=== PATIENT | female | born 1965 | race American Indian/Alaskan Native ===

== ENCOUNTER 2017-07-18 01:12 | Emergency (ER) | payer BC ==
[2017-07-18 01:12] VITALS: BMI 54.1
--- NOTE | 2017-07-18 01:39 | C.PDOC ---
History Of Present Illness Patient presents to ED c/o left sided chest pressure radiating to her left upper back/neck for the past several hours. Pain is constant, not associated with palpitations, SOB, cough, fever, abdominal pain. Patient denies falls/ injuries, h/o HTN/DM/hyperlipidemia, family history of [place], recent surgeries/ immobilization/travel. Time Seen by Provider: 07/18/17 01:29 Chief Complaint (Nursing): Chest Pain History Per: Patient History/Exam Limitations: no limitations Onset/Duration Of Symptoms: Hrs Current Symptoms Are (Timing): Still Present Severity: Moderate Quality: "Pain" Associated Symptoms: denies: Nausea, Dyspnea, Diaphoresis, Syncope Exacerbating Factors: Movement Past Medical History Reviewed: Historical Data, Nursing Documentation, Vital Signs Vital Signs: Last Vital Signs Temp 98.0 F 07/18/17 04:20 Pulse 78 07/18/17 04:20 Resp 13 07/18/17 04:20 BP 142/85 07/18/17 04:20 Pulse Ox 97 07/18/17 04:20 - Medical History Other PMH: peripheral edema - [facility] Procedures APPL/ADMIN OF AN ADHESION BARRIER SUBSTANCE (12/07/02) CLOSED ENDOSCOPIC BIOPSY OF LARGE INTESTINE (05/11/05) ENDOSC POLYPECTOMY OF LG INTEST (05/11/05) LAPAROSCOP LYSIS-ADHES OVA,FALLOP TUBE (04/17/03) LAPAROSCOPIC REPAIR OF DIAPHRAGMATIC HRN, ABDOMINAL APPROACH (08/15/13) LAPAROSCOPIC VERTICAL (SLEEVE) GASTRECTOMY (08/15/13) UTERINE LES DESTRUCT NEC (12/07/02) UTERINE REPAIR NEC (12/07/02) Family History: States: No Known Family Hx - Social History Hx Alcohol Use: No Hx Substance Use: No - Immunization History Hx Tetanus Toxoid Vaccination: No Hx Influenza Vaccination: No Hx Pneumococcal Vaccination: No Review Of Systems Except As Marked, All Systems Reviewed And Found Negative. Constitutional: Negative for: Fever, Chills Cardiovascular: Positive for: Chest Pain. Negative for: Palpitations Respiratory: Negative for: Cough, Shortness of Breath Gastrointestinal: Negative for: Nausea, Vomiting, Abdominal Pain, Diarrhea Skin: Negative for: Rash Physical Exam - Physical Exam Appears: Well, Non-toxic, In Acute Distress (in mild to moderate pain) Skin: Normal Color, Warm, Dry, No Rash Oral Mucosa: Moist Chest: Symmetrical, No Tenderness, No Ecchymosis Cardiovascular: Rhythm Regular Respiratory: Normal Breath Sounds, No Rales, No Rhonchi, No Wheezing Gastrointestinal/Abdominal: Normal Exam, Bowel Sounds, Soft, No Tenderness Extremity: Pedal Edema (+1 pitting edema B/L LEs), No Calf Tenderness, No Deformity Pulses: Left Dorsalis Pedis: Normal, Right Dorsalis Pedis: Normal Neurological/Psych: Oriented x3 ED Course And Treatment - Laboratory Results Result Diagrams: 07/18/17 01:39 07/18/17 01:39 ECG: Interpreted By Me, Viewed By Me (sinus tachycardia 110bpm, normal axis, no acute ST/T wave changes) ECG Interpretation: Abnormal O2 Sat by Pulse Oximetry: 100 (RA) Pulse Ox Interpretation: Normal - Radiology CXR: Interpreted by Me, Viewed By Me CXR Interpretation: Yes: No Acute Disease. No: Infiltrates, Pnemothorax Progress Note: Blood work, including d-dimer and JEFF x 2, CXR ordered and reviewed. Patient given IV morphine 2mg. Reevaluation Time: 04:10 Reassessment Condition: Improved (On reassessment, patient is resting comfortably and states her symptoms have resolved. Vitals are improved. Blood work unremarkable. Patient is comfortable being discharged home, was instructed to follow up with PMD in 1-2 days. She understands she should return to ED if symptoms worsen.) Disposition Counseled Patient/Family Regarding: Studies Performed, Diagnosis, Need For Followup, Rx Given - Disposition Referrals: Jarad Whitmore MD [Primary Care Provider] - Disposition: HOME/ ROUTINE Disposition Time: 04:10 Condition: STABLE Additional Instructions: FOLLOW UP WITH DR WHITMORE IN 1-2 DAYS RETURN TO ER IF SYMPTOMS RETURN/WORSEN Instructions: Noncardiac Chest Pain (ED) Forms: [employer] (Mozambican) Print Language: ARMENIAN - POA Present On Arrival: None - Clinical Impression Clinical Impression: Non-cardiac chest pain
[2017-07-18 01:45] LABS: BASO # 0.1 K/uL (0.0-0.2); EOS # 0.2 K/uL (0.0-0.7); EOS % 2.4 % (0.0-4.0); HEMOGLOBIN 14.1 g/dL (11.0-16.0); LYMPH # 3.6 K/uL (1.0-4.3); MEAN CELL VOLUME 83.9 fL (81.0-99.0); MEAN CORPUSCULAR HEMOGLOBIN 28.1 pg (27.0-31.0); MEAN CORPUSCULAR HGB CONC 33.5 g/dL (33.0-37.0); MEAN PLATELET VOLUME 8.1 fL (7.2-11.7); MONO # 0.5 K/uL (0.0-0.8); MONO % 7.3 % (0.0-10.0); NEUT # 3.1 K/uL (1.8-7.0); NEUT % 41.3 % (50.0-75.0); RBC 5.02 Mil/uL (3.80-5.20); RED CELL DISTRIBUTION WIDTH 13.8 % (11.5-14.5); WHITE BLOOD COUNT 7.5 K/uL (4.8-10.8)
[2017-07-18 01:58] LABS: PARTIAL THROMBOPLASTIN TIME 30 SECONDS (21-34); PROTHROMBIN TIME 10.8 SECONDS (9.7-12.2)
[2017-07-18 01:59] LABS: D DIMER < 200 ng/mlDDU (0-243)
[2017-07-18 02:14] LABS: ALB/GLOB RATIO 1.1 (1.0-2.1); ALBUMIN 4.3 g/dL (3.5-5.0); ALT/SGPT 24 U/L (9-52); AST/SGOT 36 U/L (14-36); BLOOD UREA NITROGEN 15 mg/dL (7-17); CALCIUM 9.5 mg/dl (8.6-10.4); GFR AFRICAN-AMERICAN > 60; GFR NON-AFRICAN AMERICAN > 60
[2017-07-18 02:19] LABS: B-TYPE NATRIURETIC PEPTIDE 59.8 pg/mL (0-900); CK-MB 0.42 ng/mL (0.0-3.38)
[2017-07-18 03:57] LABS: CK-MB 0.42 ng/mL (0.0-3.38); TROPONIN I 0.027 ng/mL (0.00-0.120)
[2017-07-18 04:21] VITALS: BP 142/85; PULSE 78; RESP 13; TEMP 98
[2017-07-18 05:23] VITALS: O2SAT 100
--- NOTE | 2017-07-18 08:55 | RAD ---
Chest x-ray single frontal view History: Shortness of breath. Comparison: 08/06/2013 Findings: Elevated right hemidiaphragm. No focal infiltrate or effusion. Heart size within normal limits. Caps Degenerative changes in the spine. Impression: No focal infiltrate or effusion.
--- NOTE | 2017-07-19 23:15 | CARD ---
APPROVED REPORT EKG Measurement Heart [id number] MA [id number] <Conclusion> Sinus tachycardia Otherwise normal ECG
== END 2017-07-18 04:22 | disposition home or self-care (01) ==
LOC: C.ER 01:12 → SUPCPDRO 01:12 → C.ER 04:22
DX: R07.89 Other chest pain (principal); R60.0 Localized edema
CPT/HCPCS: 71045; 80053; 82948; 83880; 84484; 85025; 85378; 85610; 85730; 93005; 96374; 99285; J2270

== ENCOUNTER 2018-07-24 20:23 | Emergency (ER) | payer BC ==
[2018-07-24 20:23] VITALS: BMI 54.1
[2018-07-24 20:36] VITALS: TEMP 97.6; O2SAT 99
[2018-07-24] MEDS ORDERED: Sodium Chloride 0.9% 1,000 ML IV ONE (21:36)
--- NOTE | 2018-07-24 22:44 | C.PDOC ---
History Of Present Illness 52 year old female presents to the ED c/o 2 day history of frontal tightness that was intermittent and associated with both exertion and rest. Patient reports tightness was also associated with pulsating sensation and sound in her ears. Patient reports now tightness became constant and worse with exertion along with some nausea. Patient denies fever, chills, vomit, dizziness, visual changes, neck stiffness, rash, injury, fall, trauma, weakness, numbness. Time Seen by Provider: 07/24/18 20:52 Chief Complaint (Nursing): Headache History Per: Patient History/Exam Limitations: no limitations Onset/Duration Of Symptoms: Days (2) Current Symptoms Are (Timing): Still Present Quality: Tightness Associated Symptoms: Nausea Recent travel outside of the [place]: No Additional History Per: Patient Past Medical History Reviewed: Historical Data, Nursing Documentation, Vital Signs Vital Signs: Last Vital Signs Temp 97.6 F 07/24/18 20:34 Pulse 106 H 07/24/18 20:34 Resp 20 07/24/18 20:34 BP 132/98 H 07/24/18 20:34 Pulse Ox 99 07/24/18 20:34 - Medical History PMH: No Chronic Diseases Surgical History: No Surg Hx - [facility] Procedures APPL/ADMIN OF AN ADHESION BARRIER SUBSTANCE (12/07/02) CLOSED ENDOSCOPIC BIOPSY OF LARGE INTESTINE (05/11/05) ENDOSC POLYPECTOMY OF LG INTEST (05/11/05) LAPAROSCOP LYSIS-ADHES OVA,FALLOP TUBE (04/17/03) LAPAROSCOPIC REPAIR OF DIAPHRAGMATIC HRN, ABDOMINAL APPROACH (08/15/13) LAPAROSCOPIC VERTICAL (SLEEVE) GASTRECTOMY (08/15/13) UTERINE LES DESTRUCT NEC (12/07/02) UTERINE REPAIR NEC (12/07/02) Family History: States: Unknown Family Hx - Social History Hx Alcohol Use: No Hx Substance Use: No - Immunization History Hx Tetanus Toxoid Vaccination: No Hx Influenza Vaccination: No Hx Pneumococcal Vaccination: No Review Of Systems Constitutional: Negative for: Fever, Chills Eyes: Negative for: Vision Change Cardiovascular: Negative for: Chest Pain, Palpitations Respiratory: Negative for: Cough, Shortness of Breath Gastrointestinal: Positive for: Nausea. Negative for: Vomiting, Abdominal Pain Skin: Negative for: Rash Neurological: Positive for: Headache. Negative for: Weakness, Numbness, Dizziness Physical Exam - Physical Exam Appears: Non-toxic, No Acute Distress Skin: Normal Color, Warm, Dry Head: Atraumatic, Normacephalic, Other (no tmporal artery tenderness b/l) Eye(s): bilateral: Normal Inspection, PERRL, EOMI Oral Mucosa: Moist Neck: Normal ROM, No Midline Cervical Tenderness, Supple, Other (no meningeal signs ) Chest: Symmetrical Cardiovascular: Rhythm Regular Respiratory: Normal Breath Sounds, No Rales, No Rhonchi, No Wheezing Gastrointestinal/Abdominal: Soft, No Tenderness, No Guarding, No Rebound Back: No Vertebral Tenderness Extremity: Normal ROM, No Tenderness, No Swelling Neurological/Psych: Oriented x3, Normal Speech, Normal Cognition, Normal Cranial Nerves, Cerebellar Signs, Normal Motor, Normal Sensation, Other (normal finger to nose, alternating movements) Gait: Steady ED Course And Treatment O2 Sat by Pulse Oximetry: 99 (ON RA) Pulse Ox Interpretation: Normal - CT Scan/US CT head Other Rad Studies (CT/US): Read By Radiologist, Radiology Report Reviewed CT/US Interpretation: EXAM: CT Head without Intravenous Contrast. CLINICAL HISTORY: PULSING SENSATION/SAMARITAN TIGHTNESS. TECHNIQUE: Axial computed tomography images of the head/brain without intravenous contrast. 0.00 mGy-cm. COMPARISON: None provided. FINDINGS: BRAIN. There is a large cystic area in the left inferior temporal lobe region. This measures 3.5 x 3.2 centimeters on series 2, image 7. Unclear if this represents arachnoid cyst, versus congenital cystic lesion. There appears to be some malformation of the brain immediately adjacent to this. 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 This is felt less likely to be an aggressive cystic lesion. Comparison with any prior CTs, if available, would be helpful. If clinically indicated, MRI could be obtained to further evaluate. No CT evidence for acute intracranial hemorrhage. VENTRICLES: No hydrocephalus. ORBITS: The orbits are unremarkable. SINUSES AND MASTOIDS: The paranasal sinuses and mastoid air cells are clear. BONES: No fracture. SOFT TISSUES: Unremarkable. MISCELLANEOUS: No evidence for acute territorial infarction. IMPRESSION: 1. There is a large cystic area in the left inferior temporal lobe region. Unclear if this represents arachnoid cyst, versus congenital cystic lesion. There appears to be some malformation of the brain immediately adjacent to this. 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 This is felt less likely to be an aggressive cystic lesion. Comparison with any prior CTs, if available, would be helpful. If clinically indicated, MRI could be obtained to further evaluate. 2. No CT evidence for acute intracranial hemorrhage. 3. No evidence for acute territorial infarction. . Electronically signed on Jul 24, 2018 10:29:37 PM EST by: Segundo Hanson M.D., CARMEN Certified By ABR & CBCCT. Fellowship Trained MRI and CT Specialist Medical Decision Making Medical Decision Making: Plan: * CT head * Reglan 10 mg IVP * IV fluids Patient was informed about imaging results was advised to follow up with PMD Dr. Whitmore and to also have outpatient MRI done. pt feeling better after iv fluids. Disposition Counseled Patient/Family Regarding: Studies Performed, Diagnosis, Need For Followup - Disposition Referrals: Jarad Whitmore MD [Staff Provider] - Disposition: HOME/ ROUTINE Disposition Time: 22:59 Condition: IMPROVED Additional Instructions: Please follow up with Dr Whitmore in 1-2 days and have outpatient MRI brain done for further evaluation and for referral to neuology. Return to ER for any worsening symptoms. . Instructions: Headache, Adult (DC) Forms: [facility] (Malay), General Discharge Instructions - Clinical Impression Clinical Impression: Headache - PA / PRODUCTION GENERALIST / Resident Statement MD/DO has reviewed & agrees with the documentation as recorded. - Scribe Statement The provider has reviewed the documentation as recorded by the Scribe Estrada Rodriguez All medical record entries made by the Scribe were at my direction and personally dictated by me. I have reviewed the chart and agree that the record accurately reflects my personal performance of the history, physical exam, medical decision making, and the department course for this patient. I have also personally directed, reviewed, and agree with the discharge instructions and disposition.
[2018-07-24 23:37] VITALS: BP 130/80; PULSE 80; RESP 14
--- NOTE | 2018-07-25 12:13 | CT ---
Date of service: 07/24/2018 PROCEDURE: CT HEAD WITHOUT CONTRAST. HISTORY: By temporal tightness, pulsating sensation COMPARISON: None available. TECHNIQUE: Axial computed tomography images were obtained through the head/brain without intravenous contrast. Radiation dose: Total exam DLP = 1196.88 mGy-cm. This CT exam was performed using one or more of the following dose reduction techniques: Automated exposure control, adjustment of the mA and/or kV according to patient size, and/or use of iterative reconstruction technique. FINDINGS: HEMORRHAGE: No acute parenchymal, subarachnoid or extra-axial hemorrhage. BRAIN: There is a elliptical shaped cystic lesion within the left inferior middle cranial fossa that measures approximately 3.1 x 2.0 x 2.9 cm.. This probably represents an arachnoid cyst.. There appears to be some associated smooth remodeling changes of the sphenoid bone along the anterior inferior aspect of the left middle cranial fossa No obvious parenchymal masses. Very mild central volume loss felt be present evidenced by slight disproportionate enlargement of the ventricles compared sulci. VENTRICLES: Unremarkable. No hydrocephalus. CALVARIUM: Calvarium intact not withstanding what appears represent some remodeling of the inner table anterior inferior left middle cranial fossa there PARANASAL SINUSES: Unremarkable as visualized. No significant inflammatory changes. MASTOID AIR CELLS: Unremarkable as visualized. No inflammatory changes. OTHER FINDINGS: None. IMPRESSION: No acute intracranial hemorrhage. Findings most consistent with an arachnoid cyst left middle cranial fossa.
== END 2018-07-24 23:37 | disposition home or self-care (01) ==
LOC: C.ER 20:23
DX: R51 Headache (principal)
CPT/HCPCS: 70450; 96374; 99284; J2765; J7030